=== PATIENT | female | born 1955 | race Caucasian/White ===

== ENCOUNTER 2017-08-30 14:40 | Emergency (ER) | payer OTHER ==
[~2017-08-30] VITALS: Ht 165.1 cm; Wt 54.4 kg
--- NOTE | 2017-08-30 15:45 | ED GENERAL ADULT ---
See Addendum History of Present Illness General Chief Complaint: ETOH/Drug Related Complaint Stated Complaint: HERE FOR HIGH WATCH CLEARENCE Source: patient Exam Limitations: intoxication Vital Signs & Intake/Output Vital Signs & Intake/Output Vital Signs Date Time Temp Pulse Resp B/P B/P Pulse O2 O2 Flow FiO2 Mean Ox Delivery Rate 08/31 0610 97.0 54 18 118/73 98 Room Air 08/31 0600 97.0 54 18 118/73 08/31 0407 96.7 54 18 109/52 99 Room Air 08/31 0200 96.6 60 16 103/66 08/31 0200 96.6 60 16 103/66 97 Room Air 08/31 0000 97.2 68 16 112/66 08/31 0000 97.2 68 16 112/66 99 Room Air 08/30 2033 97.8 74 18 126/56 98 Room Air 08/30 1600 Room Air 08/30 1447 98.4 118 18 132/98 99 Room Air ED Intake and Output 08/31 0000 08/30 1200 Intake Total 0 Output Total Balance 0 Intake, Oral 0 Patient 120 lb Weight Weight Reported by Patient Measurement Method Allergies Coded Allergies: chlordiazepoxide (From LIBRIUM) (SEIZURE 08/30/17) Triage Note: PT HERE FOR HIGHWATCH CLEARANCE. PT ADMITS TO DRINKING ON THE WAY UP HERE. PT UNSURE OF HOW MUCH SHE DRANK TODAY. PT STATES SHE IS NERVOUS PT HAS HX OF WITHDRAWEL SEIZURES. PT DENIES SI/HI Triage Nurses Notes Reviewed? yes HPI: Patient presents requesting clearance to "[employer] [facility]. Patient has alcohol dependency. Patient had a withdrawal seizure while at [facility] approximately one month ago. Patient states she was into her 8 day of treatment when she had her seizure. Patient got out of treatment and started drinking again. Patient states she drank as much as she possibly could on her way here. (Janay DHALIWAL,Johnnie Hooker) Past History Travel History Traveled to [place] past 21 day No Medical History Any Pertinent Medical History? see below for history Neurological: seizure Psychiatric: alcohol dependence Surgical History Surgical History: non-contributory Psychosocial History What is your primary language Congolese Tobacco Use: Current Not Daily Daily Tobacco Use Amount/Type: =< 4 Cigarettes daily ETOH Use: alcoholic Illicit Drug Use: denies illicit drug use Family History Hx Contributory? No (Janay DHALIWAL,Johnnie Hooker) Review of Systems Review of Systems Constitutional: Reports: no symptoms. EENTM: Reports: no symptoms. Respiratory: Reports: no symptoms. Cardiovascular: Reports: no symptoms. GI: Reports: no symptoms. Genitourinary: Reports: no symptoms. Musculoskeletal: Reports: no symptoms. Skin: Reports: no symptoms. Neurological/Psychological: Reports: no symptoms. Hematologic/Endocrine: Reports: no symptoms. Immunologic/Allergic: Reports: no symptoms. All Other Systems: Reviewed and Negative (Janay DHALIWAL,Johnnie Hooker) Physical Exam Physical Exam General Appearance: well developed/nourished, alert, awake, intoxicated Head: atraumatic, normal appearance Eyes: Bilateral: PERRL, EOMI, other (SLUGGISH). Ears, Nose, Throat: normal pharynx, normal ENT inspection, hearing grossly normal Neck: normal inspection, supple, full range of motion Respiratory: normal breath sounds, chest non-tender, no respiratory distress, lungs clear Cardiovascular: regular rate/rhythm, normal peripheral pulses Gastrointestinal: normal bowel sounds, soft, non-tender, no organomegaly Back: normal inspection, normal range of motion Extremities: normal inspection, normal capillary refill, normal range of motion, no edema Neurologic/Psych: no motor/sensory deficits, awake, alert, oriented x 3, normal gait, normal mood/affect Skin: intact, normal color, warm/dry Core Measures ACS in differential dx? No CVA/TIA Diagnosis: No Sepsis Present: No Sepsis Focused Exam Completed? No (Janay DHALIWAL,Johnnie Hooker) Progress Differential Diagnoses I considered the following diagnoses in my evaluation of the patient: [Alcohol dependency, alcohol withdrawal, alcohol intoxication] Plan of Care: Orders Procedure Date/time Status Regular Diet 08/30 D Active Add-on Test (ER Only) 08/30 1611 Active DEPAKOTE LEVEL 08/30 1550 Complete CIWA 08/30 1441 Active URINE DRUG SCREEN FOR ER ONLY 08/30 1441 Complete URINALYSIS 08/30 1441 Complete MAGNESIUM 08/30 1441 Complete ETHANOL 08/30 1441 Complete COMPREHENSIVE METABOLIC PANEL 08/30 1441 Complete CBC WITHOUT DIFFERENTIAL 08/30 1441 Complete Current Medications Sig/Berhane Start time Last Medication Dose Stop Time Status Admin Levetiracetam 500 MG BID 08/30 2100 UNVr 08/30 (Caden) 211 Hydroxyzine HCl 25 MG 4 TIMES/DAY PRN 08/30 1530 AC (Atarax) Trazodone HCl 50 MG AT BEDTIME NEED.. 08/30 1530 AC 08/30 (Desyrel) 9 Gabapentin 300 MG Q8 08/30 1520 UNVr 08/31 (Neurontin) 0645 Laboratory Tests 08/30/17 1640: Urine Opiates Screen < 100, Methadone Screen < 40, Barbiturate Screen < 60, Ur Phencyclidine Scrn < 6.00, Amphetamines Screen < 100, U Benzodiazepines Scrn < 85, Urine Cocaine Screen < 50, Urine Cannabis Screen < 5.00, Urine Color YEL, Urine Clarity CLEAR, Urine pH 6.0, Ur Specific [place] <= 1.005, Urine Protein NEG, Urine Ketones NEG, Urine Nitrite NEG, Urine Bilirubin NEG, Urine Urobilinogen 0.2, Ur Leukocyte Esterase NEG, Ur Microscopic EXAM NOT REQUIRED, Urine Hemoglobin NEG, Urine Glucose NEG 08/30/17 1550: Anion Gap 13, Estimated GFR > 60, BUN/Creatinine Ratio 6.7 L, Glucose 94, Calcium 9.0, Magnesium 1.6, Total Bilirubin 0.6, AST 110 H, ALT 59 H, Alkaline Phosphatase 91, Total Protein 7.1, Albumin 3.9, Globulin 3.2, Albumin/Globulin Ratio 1.2, CBC w Diff NO MAN DIFF REQ, RBC 3.67 L, MCV 99.0, MCH 33.8 H, MCHC 34.2, RDW 15.1 H, MPV 7.5, Gran % 63.5, Lymphocytes % 27.8, Monocytes % 5.6, Eosinophils % 2.8, Basophils % 0.3, Absolute Granulocytes 3.6, Absolute Lymphocytes 1.6, Absolute Monocytes 0.3, Absolute Eosinophils 0.2, Absolute Basophils 0, Valproic Acid < 10.0 L, Serum Alcohol 271.0 Initial ED EKG: none Hand-Off Endorsed To: Roger DHALIWAL,Hola Anna Endorsed Time: 1899 Pending: other (SAMUELWA) (Janay DHALIWAL,Johnnie Hooker) Departure Departure Disposition: STILL A PATIENT Condition: Stable Clinical Impression Primary Impression: Alcohol dependency Referrals: Patient Has No Primary Care Dr (PCP/Family) Departure Forms: Customer Survey General Discharge Information (Janay DHALIWAL,Johnnie Hooker) Departure Comments PT to be signed out to dr. garvey, 08/31/17, 7am. (Roger DHALIWAL,Hola Anna) Departure Comments 08/31/17 The patient is awake alert and oriented 3. No ataxia. She has no medical complaints at this time. She is being discharged [facility]. (Daniel AIKEN,David Us) Critical Care Note Critical Care Note Critical Care Time: non-applicable (Janay DHALIWAL,Johnnie Hooker)
[2017-08-30 16:09] LABS: ABSOLUTE BASOPHIL COUNT 0 /CUMM (0.0-0.2); ABSOLUTE EOSINOPHIL COUNT 0.2 /CUMM (0.0-0.7); ABSOLUTE GRANULOCYTE CT 3.6 /CUMM (1.4-6.5); ABSOLUTE LYMPH COUNT 1.6 /CUMM (1.2-3.4); ABSOLUTE MONOCYTE COUNT 0.3 /CUMM (0.10-0.60); BASOPHIL % 0.3 % (0.0-2.0); EOSINOPHIL % 2.8 % (0-5); GRANULOCYTE % 63.5 % (42.2-75.2); HEMATOCRIT 36.3 % (37-47); MEAN CORPUSCULAR HGB 33.8 PG (27.0-31.0); MEAN CORPUSCULAR HGB CONC 34.2 G/DL (33.0-37.0); MEAN PLATELET VOLUME 7.5 FL (7.4-10.4); PLATELET COUNT 147 /CUMM (130-400); RBC DISTRIBUTION WIDTH 15.1 % (11.5-14.5); RED BLOOD CELL CT 3.67 /CUMM (4.20-5.40); WHITE BLOOD CELL COUNT 5.7 /CUMM (4.8-10.8)
[2017-08-31 06:10] VITALS: BP 118/73
== END 2017-08-31 07:56 ==
LOC: ERH 14:40
PROVIDERS: Physician Assistant Medical
DX: F10.20 Alcohol dependence, uncomplicated (principal); R56.9 Unspecified convulsions
CPT/HCPCS: 80307; 81003; G0480